=== PATIENT | female | born 1985 | race Two or more races ===

== ENCOUNTER 2020-05-29 08:44 | Inpatient (IN) | payer OTHER ==
[~2020-05-29] VITALS: Ht 162.6 cm; Wt 64.4 kg
[2020-05-29] MEDS ORDERED: PRENATAL PLUS1 EAC1 PO (09:01)
== END 2020-05-31 13:07 | disposition home or self-care (01) | DRG 807 ==
LOC: OB/GYN 08:44 → LDR 08:44 → OB/GYN 18:29
PROVIDERS: ADMIT Obstetrics & Gynecology; ATTEND Obstetrics & Gynecology
PROC: 10E0XZZ Delivery of Products of Conception, External Approach (ICD-10-PCS; principal; 2020-05-29)
PROC: 10907ZC Drainage of Amniotic Fluid, Therapeutic from Products of Conception, Via Natural or Artificial Opening (ICD-10-PCS; 2020-05-29)
PROC: 4A1HXFZ Monitoring of Products of Conception, Cardiac Rhythm, External Approach (ICD-10-PCS; 2020-05-29)
DX: O80 Encounter for full-term uncomplicated delivery (principal); Z37.0 Single live birth; Z3A.39 39 weeks gestation of pregnancy; Z20.822 Contact with and (suspected) exposure to COVID-19

== ENCOUNTER 2023-03-29 07:35 | Day surgery (SDC) | payer OTHER ==
[~2023-03-29] VITALS: Ht 162.6 cm; Wt 53.5 kg
[~2023-03-29 07:35] MED LIST: PRENATAL PLUS1 EAC1 PO
[2023-03-29] MEDS ORDERED: NEURONTIN300 MG PO (14:26)
[2023-03-29] MEDS ORDERED: IBU800 MG PO (14:26)
== END 2023-03-29 16:33 | disposition home or self-care (01) ==
LOC: CIR.AMB 07:35
PROVIDERS: ATTEND Obstetrics & Gynecology Gynecology
DX: N83.201 Unspecified ovarian cyst, right side (principal); Z91.013 Allergy to seafood; Z20.822 Contact with and (suspected) exposure to COVID-19